=== PATIENT | female | born 1985 | race Caucasian/White ===

== ENCOUNTER 2021-07-13 12:33 | Emergency (ER) | payer OTHER ==
[2021-07-13 12:39] VITALS: BP 100/65; PULSE 76; TEMP 97; BMI 23.4
[2021-07-13 14:05] LABS: HCG,QUALITATIVE URINE Negative
[2021-07-13 14:11] LABS: EPI CELLS 5 /uL (0-25.1); HYALINE CASTS 0 /uL (0-3.1); URINE APPEARANCE TURBID; URINE BACTERIA 384 /uL (0-1359); URINE BILIRUBIN NEGATIVE (NEGATIVE); URINE COLOR YELLOW; URINE GLUCOSE (UA) NEGATIVE (NEGATIVE); URINE KETONE NEGATIVE (NEGATIVE); URINE LEUK ESTERASE 3+ (NEGATIVE); URINE NITRITE NEGATIVE (NEGATIVE); URINE PROTEIN 2+ (NEGATIVE); URINE RBC 1568 /uL (0-23.9); URINE WBC 8260 /uL (0-25.8)
== END 2021-07-13 14:27 | disposition home or self-care (01) ==
LOC: JER 12:33
DX: N30.01 Acute cystitis with hematuria (principal)
CPT/HCPCS: 36415; 81003; 84703; 87086; 87491; 87591; 99283-25

== ENCOUNTER 2022-10-13 18:46 | Emergency (ER) | payer OTHER ==
[2022-10-13 19:13] VITALS: BP 122/85; PULSE 97; RESP 20; TEMP 99.8; BMI 18.3
[2022-10-13] MEDS ORDERED: AMOX TR/POT CLAV 875MG/125MG TABLETS (FP) PO ONE (20:56)
[2022-10-13] MEDS ORDERED: AMOX TR/POT CLAV 875MG/125MG TABLETS (FP) ONE (21:04)
[2022-10-13] MEDS ORDERED: DIPHTH,PERTUSS(ACELL),TET 0.5 ML DISP.SYRIN IM ONE ×2 (22:49→22:54)
== END 2022-10-13 23:09 | disposition home or self-care (01) ==
LOC: JER 18:46
PROC: 3E0234Z Introduction of Serum, Toxoid and Vaccine into Muscle, Percutaneous Approach (ICD-10-PCS; principal; 2022-10-13)
DX: J09.X2 Influenza due to identified novel influenza A virus with other respiratory manifestations (principal); S91.051A Open bite, right ankle, initial encounter; W54.0XXA Bitten by dog, initial encounter
CPT/HCPCS: 0241U-QW; 90471; 90715; 99283-25

== ENCOUNTER 2023-01-26 18:33 | Emergency (ER) | payer OTHER ==
[2023-01-26 18:45] VITALS: BP 98/63; PULSE 72; RESP 18; TEMP 98.2; BMI 21.4
[2023-01-26] MEDS ORDERED: ACETAMINOPHEN 500 MG TABLET (FP) PO ONE (19:40)
[2023-01-26] MEDS ORDERED: IBUPROFEN 600 MG TABLET (FP) PO ONE ×2 (19:40→19:46)
[2023-01-26] MEDS ORDERED: CYCLOBENZAPRINE HCL 10 MG TABLET (FP) PO ONE (19:40)
[2023-01-26] MEDS ORDERED: CYCLOBENZAPRINE HCL 10 MG TABLET (FP) ONE (19:46)
[2023-01-26] MEDS ORDERED: ACETAMINOPHEN 500 MG TABLET (FP) ONE (19:47)
== END 2023-01-26 21:29 | disposition home or self-care (01) ==
LOC: JERFT 18:33
DX: M54.50 Low back pain, unspecified (principal)
CPT/HCPCS: 72100-TC-FY; 99283-25